=== PATIENT | male | born 1980 | race Two or more races ===

== ENCOUNTER 2024-07-10 16:19 | Emergency (ER) | payer OTHER ==
[2024-07-10 16:38] VITALS: BP 125/84; PULSE 63; RESP 18; TEMP 98.8; BMI 43.8
[2024-07-10] MEDS ORDERED: IBUPROFEN 600 MG TABLET (FP) PO ONE ×2 (16:40→16:54)
== END 2024-07-10 17:50 | disposition home or self-care (01) ==
LOC: FER 16:19
DX: R51.9 Headache, unspecified (principal)
CPT/HCPCS: 99282-25

== ENCOUNTER 2024-08-01 12:43 | Emergency (ER) | payer OTHER ==
[2024-08-01 12:50] VITALS: BP 116/80; PULSE 65; RESP 18; TEMP 97.7; BMI 29.7
[2024-08-01] MEDS ORDERED: METOCLOPRAMIDE HCL 10 MG TABLET (FP) PO ONE (13:21)
[2024-08-01] MEDS ORDERED: ACETAMINOPHEN 500 MG TABLET (FP) ONE (13:21)
[2024-08-01] MEDS: ACETAMINOPHEN 500 MG TABLET (FP) PO ONE (13:22)
[2024-08-01] MEDS: METOCLOPRAMIDE HCL 10 MG TABLET (FP) PO ONE (13:23)
== END 2024-08-01 16:05 | disposition home or self-care (01) ==
LOC: FER 12:43
DX: H57.13 Ocular pain, bilateral (principal)
CPT/HCPCS: 70450-TC; 99284-25